=== PATIENT | female | born 1960 | race Caucasian/White ===

== ENCOUNTER 2017-12-30 17:30 | Emergency (ER) | payer MEDICAID ==
[~2017-12-30] VITALS: Ht 170.2 cm; Wt 65.8 kg
[2017-12-30 17:30] VITALS: BP 135/75
[2017-12-30] MEDS ORDERED: HYDR-552 PO (17:56)
== END 2017-12-30 19:50 | disposition home or self-care (01) ==
LOC: ER 17:35
DX: S42.291D Other displaced fracture of upper end of right humerus, subsequent encounter for fracture with routine healing (principal); X58.XXXD Exposure to other specified factors, subsequent encounter; Z60.2 Problems related to living alone
CPT/HCPCS: 29105; 99283; A4606; Z7610